=== PATIENT | male | born 1975 | race American Indian/Alaskan Native ===

== ENCOUNTER 2017-09-19 08:17 | Emergency (ER) | payer OTHER ==
--- NOTE | 2017-09-19 09:08 | XRay Report ---
ROUTINE CHEST, TWO VIEWS: HISTORY: chest pain. The trachea, heart, mediastinal contour, lung flores and bony thorax are unremarkable. IMPRESSION: Unremarkable chest x-ray.
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
[2017-09-19] MEDS ORDERED: FLEXERIL PO ONE (10:40)
[2017-09-19] MEDS ORDERED: NORCO 5/325 PO ONE (10:40)
[2017-09-19] MEDS ORDERED: MOTRIN PO ONE (10:40)
[2017-09-19 12:14] VITALS: BP 138/75
== END 2017-09-19 12:14 | disposition home or self-care (01) ==
LOC: ED 08:17
DX: R07.9 Chest pain, unspecified (principal); F17.200 Nicotine dependence, unspecified, uncomplicated; V43.52XA Car driver injured in collision with other type car in traffic accident, initial encounter; Y93.9 Activity, unspecified; Y99.9 Unspecified external cause status; Y92.410 Unspecified street and highway as the place of occurrence of the external cause
CPT/HCPCS: 71020; 99283